=== PATIENT | female | born 1975 | race Caucasian/White ===

== ENCOUNTER 2019-02-21 08:39 | Outpatient (REF) | payer BC, SELFPAY ==
[2019-02-21 20:51] LABS: Abs Immature Grans 0.02 k/cumm (0.0-0.09); Absolute Basophil Count 0.02 k/cumm (0.0-0.2); Absolute Eosinophil Count 0.22 k/cumm (0.0-0.7); Absolute Monocyte Count 0.48 k/cumm (0.11-0.7); Basophils % 0.4; Eosinophils % 4.4; HGB 12.8 g/dL (12.0-15.5); Immature Grans % 0.4; Lymphocytes % 23.8; Mean Corpuscular Hemoglobin 28.3 pg (27.0-33.0); Mean Corpuscular Volume 88.5 fL (80-95); Mean Platelet Volume 11.2 fL (8.0-11.0); Monocytes % 9.5; Neutrophils % 61.5; Platelet Count 217 x1000/uL (130-400); RBC 4.52 m/cumm (4.00-5.20); RBC Distribution Width 13.8 % (11.7-14.6); White Blood Cell Count 5.04 k/cumm (4.4-10.8)
[2019-02-21 20:55] LABS: ALT 19 U/L (12-78); AST 10 U/L (15-37); Albumin 3.5 g/dL (3.4-5.0); Alkaline Phosphatase 42 U/L (46-116); Anion Gap 6.4 mmol/L (3-11); BUN 13 mg/dL (7-18); Bilirubin, Total 1.2 mg/dL (0.2-1.0); CO2 28.6 mmol/L (21.0-32.0); CREATININE 0.82 mg/dL (0.55-1.02); Calcium 8.3 mg/dL (8.5-10.1); Chloride 105 mmol/L (98-107); Glucose 116 mg/dL (70-100); Sodium 140 mmol/L (136-145); Total Protein 6.4 g/dL (6.4-8.2)
[2019-02-23 10:57] LABS: Lyme Ab w Rflx to Lyme Confirm Negative
[2019-02-24 17:20] LABS: Anaplasma phagocytophilum Negative (Negative); B. miyamotoi PCR Negative (Negative); Babesia divergens/MO-1 Negative (Negative); Babesia duncani Negative (Negative); Babesia microti Negative (Negative); Ehrlichia chaffeensis Negative (Negative); Ehrlichia ewingii/canis Negative (Negative); Ehrlichia muris eauclairensis Negative (Negative)
== END 2019-02-21 08:59 ==
LOC: NCHCN 08:39
PROVIDERS: PCP Registered Nurse; Visit Provider Registered Nurse
DX: R53.1 Weakness (principal); R50.9 Fever, unspecified; R11.0 Nausea
CPT/HCPCS: 80053; 87798; 85025; 86618

== ENCOUNTER 2020-05-31 18:38 | Outpatient (REF) | payer BC, SELFPAY ==
[2020-06-04 03:12] LABS: SARS-CoV-2 RNA Undetected (Undetected); SARS-CoV-2 Specimen Source Nasal
== END 2020-05-31 18:58 ==
LOC: NCHCN 18:38
PROVIDERS: PCP Registered Nurse; Visit Provider Registered Nurse
DX: Z20.828 Contact with and (suspected) exposure to other viral communicable diseases (principal)
CPT/HCPCS: U0003

== ENCOUNTER 2021-06-17 16:42 | Outpatient (REF) | payer BC, SELFPAY ==
[2021-06-17 15:21] LABS: Anion Gap 8.1 mmol/L (3-11); BUN 15 mg/dL (7-18); CO2 28.9 mmol/L (21.0-32.0); CREATININE 0.9 mg/dL (0.55-1.02); Calcium 8.9 mg/dL (8.5-10.1); Calculated LDL 79 mg/dL (<100); Chloride 105 mmol/L (98-107); Cholesterol 138 mg/dL (<200); Glucose 74 mg/dL (74-106); HDL Cholesterol 44 mg/dL (40-60); Potassium 4.2 mmol/L (3.5-5.1); Sodium 142 mmol/L (136-145); TSH (W/Ref FT4) 1.94 uIU/mL (0.36-3.74); Triglyceride 77 mg/dL (<150)
[2021-06-19 01:42] LABS: Vitamin D 25 Total 40.7 ng/mL (30-100)
== END 2021-06-17 16:43 | disposition home or self-care (01) ==
LOC: NCHCN 16:42
PROVIDERS: PCP Registered Nurse; Visit Provider Family Medicine
DX: E83.51 Hypocalcemia (principal); Z83.49 Family history of other endocrine, nutritional and metabolic diseases; Z82.62 Family history of osteoporosis; Z13.220 Encounter for screening for lipoid disorders
CPT/HCPCS: 80048; 80061; 82306; 84443

== ENCOUNTER 2022-12-02 16:37 | Outpatient (REF) | payer BC, SELFPAY ==
--- NOTE | 2022-12-02 16:00 | PAPFT_PTH ---
PATIENT: Caitlin Rodriguez LOC: [facility]#:[id number] AGE/SX: 47/F ROOM: RE12/02/[address]: Germaine Page : 1975 BED: DIS: 12/02/2022 SPEC #: [id number] RECD: 12/03/22 13:05 STATUS: IRMA REDru #: [id number] GOOD: 12/02/22 16:[address]: Germaine Paeg DEPT: [facility] Cytology RECD BY: Soledad Mckeon ENTERED: 12/03/22 13:05 SP TYPE: PAPFT OTHR DR: Domonique Mansfield Tissues: 1 - CX/ENDOCX FOR PAP SMEARS Procedures: PAP THIN PREP/[facility] Screening HPV DNA PROBE Comments: [id number]
== END 2022-12-02 16:38 | disposition home or self-care (01) ==
LOC: NCHCN 16:37
PROVIDERS: PCP Registered Nurse; Visit Provider Family Medicine
DX: Z12.4 Encounter for screening for malignant neoplasm of cervix (principal); Z11.51 Encounter for screening for human papillomavirus (HPV)
CPT/HCPCS: 88142; 87624

== ENCOUNTER 2023-12-29 11:45 | Outpatient (REF) | payer BC, SELFPAY ==
[2023-12-29 22:10] LABS: HGB 13.8 g/dL (11.2-15.7); RBC 4.64 10^6/uL (3.93-5.22); WBC 5.75 10^3/uL (4.4-10.8)
[2023-12-29 22:11] LABS: HCT 42.2 % (36.0-46.0); MCH 29.7 pg (27.0-33.0); MCHC 32.7 % (32.0-36.0); MCV 91 fL (80-95); MPV 10.9 fL (8.0-11.0); Platelet Count 194 10^3/uL (130-400); RDW 12.8 % (11.7-14.6); RDW-SD 42.4 fL
[2023-12-29 22:23] LABS: Hemoglobin A1C 5.2 % (<5.7)
[2023-12-29 22:45] LABS: Calculated LDL 105 mg/dL (<100); Cholesterol 169 mg/dL (<200); HDL Cholesterol 51 mg/dL (40-60); TSH (W/Ref FT4) 2.28 uIU/mL (0.36-3.74); Triglyceride 69 mg/dL (<150); Vitamin B12 462 pg/mL (193-986)
== END 2023-12-29 11:46 | disposition home or self-care (01) ==
LOC: NCHCN 11:45
PROVIDERS: PCP Registered Nurse; Visit Provider Family Medicine
DX: R25.1 Tremor, unspecified (principal); Z13.220 Encounter for screening for lipoid disorders; Z13.1 Encounter for screening for diabetes mellitus; Z83.2 Family history of diseases of the blood and blood-forming organs and certain disorders involving the immune mechanism; Z83.49 Family history of other endocrine, nutritional and metabolic diseases
CPT/HCPCS: 80061; 85027; 82607; 83036; 84443

== ENCOUNTER 2025-07-06 14:43 | Outpatient (REF) | payer BC, SELFPAY ==
[2025-07-06 21:05] LABS: HCT 41.3 % (36.0-46.0); HGB 13.5 g/dL (11.2-15.7); MCH 28.1 pg (27.0-33.0); MCHC 32.7 % (32.0-36.0); MCV 86 fL (80-95); MPV 10.6 fL (8.0-11.0); Platelet Count 175 10^3/uL (130-400); RBC 4.81 10^6/uL (3.93-5.22); RDW 12.9 % (11.7-14.6); RDW-SD 40.5 fL; WBC 5.83 10^3/uL (4.4-10.8)
[2025-07-06 21:19] LABS: TSH (W/Ref FT4) 1.69 uIU/mL (0.55-4.78)
== END 2025-07-06 14:44 | disposition home or self-care (01) ==
LOC: NCHCN 14:43
PROVIDERS: PCP Registered Nurse; Visit Provider Family Medicine
DX: Z86.2 Personal history of diseases of the blood and blood-forming organs and certain disorders involving the immune mechanism (principal); R53.83 Other fatigue
CPT/HCPCS: 85027; 83540; 83550; 84443